=== PATIENT | female | born 1970 | race African-American/Black ===

== ENCOUNTER 2017-05-22 17:57 | Emergency (ER) | payer BC, MEDICAID ==
[~2017-05-22] VITALS: Ht 170.2 cm; Wt 104.0 kg
[2017-05-22] MEDS ORDERED: TETANUS, DIPHTHERIA, PERTUSSIS VAC/PF 0.5ML (>7YR OLD) IM ONE (22:30)
[2017-05-22] MEDS ORDERED: ACETAMINOPHEN WITH CODEINE 300/30MG TABLET PO ONE (22:30)
[2017-05-22] MEDS ORDERED: BACITRACIN ZINC OINT UDPKT TOP ONE (22:30)
[2017-05-22 23:25] VITALS: BP 146/84
== END 2017-05-22 23:27 | disposition home or self-care (01) ==
LOC: ER 22:35
DX: T23.271A Burn of second degree of right wrist, initial encounter (principal); T31.0 Burns involving less than 10% of body surface; X10.2XXA Contact with fats and cooking oils, initial encounter; Y93.G3 Activity, cooking and baking; Y92.010 Kitchen of single-family (private) house as the place of occurrence of the external cause
CPT/HCPCS: 16020; 99284; J7030; Z7610; 90715